=== PATIENT | male | born 1970 | race Caucasian/White ===

== ENCOUNTER 2017-08-26 12:22 | Emergency (ER) | payer BC ==
[~2017-08-26] VITALS: Ht 175.3 cm; Wt 136.1 kg
[~2017-08-26 12:22] MED LIST: DIOVAN HCT 1601 EACH
[2017-08-26 14:20] VITALS: BP 150/88
== END 2017-08-26 14:21 | disposition home or self-care (01) ==
LOC: M.ERS 12:22
DX: M25.521 Pain in right elbow (principal); I10 Essential (primary) hypertension; F17.220 Nicotine dependence, chewing tobacco, uncomplicated; X50.9XXA Other and unspecified overexertion or strenuous movements or postures, initial encounter; Y93.89 Activity, other specified; Y92.89 Other specified places as the place of occurrence of the external cause; Y99.8 Other external cause status

== ENCOUNTER 2020-12-07 12:19 | Emergency (ER) | payer BC ==
[~2020-12-07] VITALS: Ht 175.3 cm; Wt 135.2 kg
[2020-12-07] MEDS ORDERED: DIOVAN160 MG PO (12:36)
[2020-12-07] MEDS ORDERED: NSAID (12:37)
[2020-12-07] MEDS ORDERED: HYDROCHLOROTHIA25 M1 PO (12:37)
[2020-12-07] MEDS ORDERED: NORVASC 2.5 MG2.5 M1 PO (12:37)
[2020-12-07] MEDS ORDERED: HYDRALAZINE 2525 M1 (12:37)
[2020-12-07 12:51] LABS: URINE BILIRUBIN NEGATIVE (Negative); URINE BLOOD 2+ (Negative); URINE CLARITY CLEAR; URINE COLOR YELLOW; URINE GLUCOSE-RANDOM NEGATIVE (Negative); URINE KETONES NEGATIVE (Negative); URINE LEUKOCYTES-REFLEX NEGATIVE (Negative); URINE NITRITE-REFLEX NEGATIVE (Negative); URINE PROTEIN NEGATIVE (Negative); URINE SPECIFIC GRAVITY 1.025 (1.005-1.030); URINE UROBILINOGEN 0.2 E.U./dl (0.2-1.0)
[2020-12-07 13:04] LABS: BACTERIA-REFLEX 1-9 Few /HPF (None Seen); CASTS None Seen /LPF (None Seen); CRYSTALS None Seen /LPF (None Seen); SQUAMOUS 0-3 Few /LPF (0-3); URINE RBC 0-2 Rare /HPF (0-2); URINE WBC-REFLEX 0-5 Rare /HPF (0-5)
[2020-12-07 13:10] LABS: ABSOLUTE EOSINOPHILS 0.2 thou/uL (0.0-0.7); ABSOLUTE LYMPHOCYTES 2.3 thou/uL (0.8-5.3); ABSOLUTE MONOCYTES 0.6 thou/uL (0.0-1.2); ABSOLUTE NEUTROPHILS 5.2 thou/uL (1.6-8.1); BASOPHILS 0.4 %; EOSINOPHILS 2.9 %; HEMATOCRIT 43.3 % (42.0-52.0); LYMPHOCYTES 27.3 %; MCH 31.8 pg (26.0-34.0); MCHC 34.7 g/dL (28.0-37.0); MCV 91.6 fL (80.0-100.0); MONOCYTES 7.3 %; MPV 7.4 fl. (7.2-11.1); NUCLEATED RBCS 0 /100WBC; PLATELET COUNT* 303 thou/uL (150-400); POLYS 62.1 %; RBC 4.73 mil/uL (4.50-6.00); RDW-CV 13.7 % (10.5-14.5); WBC 8.3 thou/uL (4.0-11.0)
[2020-12-07 13:21] LABS: CALCIUM 8.9 mg/dL (8.5-10.1)
[2020-12-07 13:27] LABS: ALBUMIN 3.9 g/dL (3.4-5.0); TOTAL BILIRUBIN 0.5 mg/dL (<0.1-1.0); TOTAL PROTEIN 8.3 g/dL (6.4-8.2)
[2020-12-07] MEDS ORDERED: PEPCID20 MG PO (14:35)
[2020-12-07] MEDS ORDERED: OMEPRAZOLE 20 M20 M1 PO (14:35)
[2020-12-07] MEDS ORDERED: ONDANSETRON ODT4 MG PO (14:35)
[2020-12-07] MEDS ORDERED: NORCO5 PO ×2 (14:35→14:51)
[2020-12-07 15:05] VITALS: BP 117/58
--- NOTE | 2020-12-07 15:52 | EKG ---
[place] [address] ELECTROCARDIOGRAM REPORT Name: FAVIOLA NOLAND Room: [facility]#: [id number] Admission: 12/07/20 Attend Phys: Discharge: 12/07/20 Date of : 74 Date of Service: 12/07/20 1233 Report #: [id number] THIS REPORT FOR: //name// [facility] ED Test Date: 2020-12-07 Test Time: 12:33:19 Pat Name: FAVIOLA NOLAND Department: Room: Gender: Trust Manager Assistant: [facility] : 1970 Requested By: Tashi Higgins Order Number: [id number] MD: Nishant Marcos Measurements Intervals [place] Rate: 55 P: -23 ME: 154 QRS: 143 QRSD: 103 T: 20 QT: 420 QTc: 402 Interpretive Statements Sinus bradycardia Probable left atrial enlargement Right axis deviation Low voltage, extremity leads RSR' in V1 or V2, probably normal variant Nonspecific T abnormalities, anterior leads No previous ECG available for comparison Electronically Signed On 12-07-2020 15:52:35 CDT by Nishant Marcos [email or web address] <ELECTRONICALLY SIGNED> By: Nishant Marcos MD, FAC 12/07/20 1552 1233 1233 Nishant Marcos MD, [facility] /EPI
== END 2020-12-07 15:05 | disposition home or self-care (01) ==
LOC: M.ERS 12:19
PROVIDERS: Physician Assistant
DX: R10.13 Epigastric pain (principal); R10.11 Right upper quadrant pain; R11.0 Nausea; I10 Essential (primary) hypertension; F17.220 Nicotine dependence, chewing tobacco, uncomplicated; Z79.899 Other long term (current) drug therapy